=== PATIENT | male | born 1965 | race Caucasian/White ===

== ENCOUNTER 2017-06-10 12:45 | Emergency (ER) | payer BC, OTHER ==
[~2017-06-10] VITALS: Ht 180.3 cm; Wt 74.8 kg
[2017-06-10 13:01] VITALS: BP 146/100
== END 2017-06-10 20:15 | disposition left against medical advice (07) ==
LOC: ER 12:45
DX: M79.672 Pain in left foot (principal); M79.671 Pain in right foot; Z53.21 Procedure and treatment not carried out due to patient leaving prior to being seen by health care provider

== ENCOUNTER 2017-09-09 11:31 | Inpatient (IN) | payer BC ==
[~2017-09-09] VITALS: Ht 180.3 cm; Wt 72.6 kg
[~2017-09-09 11:31] MED LIST: AMLO5TAB2 PO; ASPI81CH43 GT; ATOR10TA52 PO; CLOP75TA28 PO; CYCL1TAB18 PO; DULO60CA PO; FEXO-42 PO; INSLANTI SC; LEVO100T8 PO; LISI10TA6 PO; LUBI24CA6 PO; OXYC325T14 PO
[2017-09-09 12:57] LABS: Hemoglobin 10.4 g/dL (13.5-17.5); White Blood Cell 12.9 10^3/uL (4.4-10.8)
[2017-09-09 12:58] LABS: Basophils # (auto) 0.1 uL; Basophils % (auto) 1.1 % (0.0-2.0); Eosinophils # (auto) 0.1 uL; Eosinophils % (auto) 0.9 % (0.0-7.0); Hematocrit 32.5 % (41.0-53.0); Lymphocytes # (auto) 1.2 uL; Lymphocytes % (auto) 9.7 % (10.0-50.0); Mean Corpuscular Hemoglobin 27.7 pg (28.0-32.0); Mean Corpuscular Hgb Conc. 32.1 g/dL (32.0-36.0); Mean Corpuscular Volume 86.4 fL (80.0-100.0); Monocytes % (auto) 8.1 % (0.0-12.0); Neutrophils # (auto) 10.3 uL; Neutrophils % (auto) 80.2 % (37.0-80.0); Nucleated Red Blood Cells % 0.1 %; Platelet Count (auto) 620 10^3/uL (140-450); Red Blood Cells 3.76 10^6/uL (4.5-5.90); Red Cell Distribution Width 16.8 % (11.8-14.3)
[2017-09-09 13:10] LABS: INR 0.95 (0.9-1.15); Partial Thromboplastin Time 31.9 sec (22.64-33.71); Prothrombin Time 10.3 sec (9.37-12.3)
[2017-09-09 13:19] LABS: Alanine Aminotransferase 41 U/L (16-61); Albumin 2.6 g/dL (3.4-5.0); Alkaline Phosphatase 86 U/L (45-117); Anion Gap 6 (5-15); Aspartate Aminotransferase 27 U/L (15-37); BUN/Creatinine Ratio 13.7; Bilirubin, Total 0.5 mg/dL (0.2-1.0); Blood Urea Nitrogen 19 mg/dL (7-18); Calcium 8.5 mg/dL (8.5-10.1); Carbon Dioxide 28 mmol/L (21-32); Chloride 102 mmol/L (98-107); GFR African American 69 mL/min; GFR Non-African American 57 mL/min; Glucose 179 mg/dL (74-106); Magnesium 2.2 mg/dL (1.6-2.6); Potassium 4.4 mmol/L (3.5-5.1); Sodium 136 mmol/L (136-145)
[2017-09-09] MEDS ORDERED: ONDANSETRON HCL 4 MG/2 ML VIAL IV ONE (14:30)
[2017-09-09] MEDS ORDERED: MORPHINE SULFATE 8mg/ml INJ SDV IV ONE (14:30)
[2017-09-09] MEDS ORDERED: DEXTROSE (50%) 50ML SYRG IV PRN (15:45)
[2017-09-09] MEDS ORDERED: MORPHINE SULFATE 8mg/ml INJ SDV IV PRN (15:45)
[2017-09-09] MEDS ORDERED: ACETAMINOPHEN 500 MG TAB PO PRN (15:45)
[2017-09-09] MEDS ORDERED: TEMAZEPAM 15 MG CAP PO PRN (15:45)
[2017-09-09] MEDS ORDERED: NITROGLYCERIN 0.4 MG SL TAB SL PRN (15:45)
[2017-09-09] MEDS ORDERED: LORazepam 0.5 MG TAB PO PRN (15:45)
[2017-09-09] MEDS: ACCU-CHEK COMFORT CURVE STRIP VI SCH ×2 (16:32→21:24)
[2017-09-09] MEDS: InsuLIN REG 1unit/0.01ml Soln (100units/ml) SC SCH ×2 (16:37→21:50)
[2017-09-09] MEDS: SODIUM CHLORIDE 0.9% 1,000 ML IV SCH (16:37)
[2017-09-09 17:00] VITALS: BP 149/85
[2017-09-09] MEDS: MORPHINE SULFATE 8mg/ml INJ SDV IV PRN ×2 (18:48→22:45)
[2017-09-09] MEDS: PROMETHAZINE HCL 25 MG/ML 1ML IV PRN ×2 (18:49→22:45)
[2017-09-09 20:00] VITALS: BP 151/72
[2017-09-09] MEDS: CLINDAMYCIN 600MG IV 50 ML IV SCH (21:21)
[2017-09-09] MEDS: ATORVASTATIN 20 MG TAB PO SCH (21:21)
[2017-09-09 22:34] VITALS: BP 157/72
[2017-09-10] MEDS: SODIUM CHLORIDE 0.9% 1,000 ML IV SCH ×3 (01:41→21:15)
[2017-09-10] MEDS: MORPHINE SULFATE 8mg/ml INJ SDV IV PRN ×5 (03:43→21:16)
[2017-09-10] MEDS: PROMETHAZINE HCL 25 MG/ML 1ML IV PRN ×5 (03:44→21:16)
[2017-09-10] MEDS: CLINDAMYCIN 600MG IV 50 ML IV SCH ×3 (05:15→21:15)
[2017-09-10] MEDS: cloNIDine HCL 0.1 MG TAB PO PRN ×2 (05:16→17:37)
[2017-09-10] MEDS: OXYCODONE W/ ACETAMINOPHEN 5/325MG TABLET PO PRN ×2 (05:21→12:21)
[2017-09-10 05:39] VITALS: BP 165/77
[2017-09-10] MEDS: LEVOTHYROXINE SODIUM 100 MCG TAB PO SCH (06:26)
[2017-09-10] MEDS: InsuLIN REG 1unit/0.01ml Soln (100units/ml) SC SCH ×4 (06:27→22:00)
[2017-09-10] MEDS: ACCU-CHEK COMFORT CURVE STRIP VI SCH ×4 (06:27→21:16)
[2017-09-10 06:36] LABS: Basophils # (auto) 0.1 uL; Eosinophils # (auto) 0.3 uL; Eosinophils % (auto) 3.1 % (0.0-7.0); Hemoglobin 10.2 g/dL (13.5-17.5); Monocytes # (auto) 0.9 uL; Neutrophils % (auto) 70.9 % (37.0-80.0)
[2017-09-10 06:37] LABS: Hematocrit 30.8 % (41.0-53.0); Lymphocytes # (auto) 1.8 uL; Lymphocytes % (auto) 16.6 % (10.0-50.0); Mean Corpuscular Hemoglobin 28.4 pg (28.0-32.0); Mean Corpuscular Hgb Conc. 33.2 g/dL (32.0-36.0); Mean Corpuscular Volume 85.7 fL (80.0-100.0); Monocytes % (auto) 8.4 % (0.0-12.0); Neutrophils # (auto) 7.5 uL; Platelet Count (auto) 600 10^3/uL (140-450); Red Blood Cells 3.59 10^6/uL (4.5-5.90); Red Cell Distribution Width 16.7 % (11.8-14.3); White Blood Cell 10.6 10^3/uL (4.4-10.8)
[2017-09-10 06:52] LABS: Albumin 2.4 g/dL (3.4-5.0); BUN/Creatinine Ratio 15.2; Bilirubin, Total 0.5 mg/dL (0.2-1.0); Calcium 8.8 mg/dL (8.5-10.1); Potassium 4.5 mmol/L (3.5-5.1); Total Protein 6.5 g/dL (6.4-8.2)
[2017-09-10] MEDS: cefTRIAXone 1GM/10ml IVPUSH 10 ML IV SCH (08:48)
[2017-09-10 09:00] VITALS: BP 159/72
[2017-09-10] MEDS ORDERED: LISINOPRIL 10 MG TAB PO SCH (10:00)
[2017-09-10] MEDS: PANTOPRAZOLE 40 MG TAB PO SCH (10:06)
[2017-09-10] MEDS: FEXOFENADINE HCL 60 MG TAB PO SCH (10:06)
[2017-09-10] MEDS: HCTZ 25 MG TAB PO SCH (10:07)
[2017-09-10] MEDS: LISINOPRIL 20 MG TAB PO SCH (10:07)
[2017-09-10] MEDS: ASPirin 81 mg TAB PO SCH (10:08)
[2017-09-10] MEDS: amLODIPine BESYLATE 5 MG TAB PO SCH (10:08)
[2017-09-10] MEDS: CLOPIDOGREL BISULFATE 75 MG TAB PO SCH (10:08)
[2017-09-10] MEDS: DULoxetine HCL 30 MG CAP PO SCH (10:09)
[2017-09-10] MEDS: ENOXAPARIN SOD 40 MG/0.4 ML SYRINGE SC SCH (10:09)
[2017-09-10] MEDS: INSULIN LANTUS (GLARGINE) 1 /0.01ml (100units/ml) SC SCH (10:14)
[2017-09-10 13:00] VITALS: BP 160/83
[2017-09-10] MEDS: CYCLOBENZAPRINE HCL 10 MG TAB PO PRN (16:08)
[2017-09-10 17:54] VITALS: BP_SYST 83
[2017-09-10] MEDS: Boost Glucose Control 8 Ounces PO SCH (18:05)
[2017-09-10 20:00] VITALS: BP 143/67
[2017-09-10 20:14] LABS: Urine Bacteria NONE SEEN /hpf (None Seen); Urine Blood 1+ /uL (Negative); Urine Specific Gravity 1.008 (1.001-1.035); Urine WBC 1 /hpf (0 - 3)
[2017-09-10] MEDS: ATORVASTATIN 20 MG TAB PO SCH (21:16)
[2017-09-10] MEDS: ASCORBIC ACID 500 MG TAB PO SCH (21:16)
[2017-09-10 22:00] VITALS: BP 143/67
[2017-09-11] MEDS: OXYCODONE W/ ACETAMINOPHEN 5/325MG TABLET PO PRN ×2 (01:03→14:04)
[2017-09-11] MEDS: MORPHINE SULFATE 8mg/ml INJ SDV IV PRN ×5 (02:06→19:59)
[2017-09-11] MEDS: PROMETHAZINE HCL 25 MG/ML 1ML IV PRN ×2 (02:06→06:03)
[2017-09-11] MEDS: CYCLOBENZAPRINE HCL 10 MG TAB PO PRN (04:39)
[2017-09-11] MEDS: CLINDAMYCIN 600MG IV 50 ML IV SCH ×3 (05:53→22:04)
[2017-09-11 06:00] VITALS: BP 113/76
[2017-09-11] MEDS: LEVOTHYROXINE SODIUM 100 MCG TAB PO SCH (06:02)
[2017-09-11] MEDS: InsuLIN REG 1unit/0.01ml Soln (100units/ml) SC SCH ×4 (06:03→22:12)
[2017-09-11] MEDS: ACCU-CHEK COMFORT CURVE STRIP VI SCH ×4 (06:03→22:07)
[2017-09-11] MEDS: SODIUM CHLORIDE 0.9% 1,000 ML IV SCH ×2 (07:41→17:41)
[2017-09-11 08:00] VITALS: BP 135/83
[2017-09-11] MEDS: Boost Glucose Control 8 Ounces PO SCH ×2 (08:00→18:02)
[2017-09-11 09:00] VITALS: BP 135/83
[2017-09-11] MEDS: ASCORBIC ACID 500 MG TAB PO SCH ×2 (09:49→22:04)
[2017-09-11] MEDS: cefTRIAXone 1GM/10ml IVPUSH 10 ML IV SCH (09:49)
[2017-09-11] MEDS: ENOXAPARIN SOD 40 MG/0.4 ML SYRINGE SC SCH (09:49)
[2017-09-11] MEDS: amLODIPine BESYLATE 5 MG TAB PO SCH (09:50)
[2017-09-11] MEDS: LISINOPRIL 20 MG TAB PO SCH (09:50)
[2017-09-11] MEDS: PANTOPRAZOLE 40 MG TAB PO SCH (09:50)
[2017-09-11] MEDS: MULTIPLE VITAMIN TAB PO SCH (09:51)
[2017-09-11] MEDS: CLOPIDOGREL BISULFATE 75 MG TAB PO SCH (09:51)
[2017-09-11] MEDS: FEXOFENADINE HCL 60 MG TAB PO SCH (09:51)
[2017-09-11] MEDS: HCTZ 25 MG TAB PO SCH (09:52)
[2017-09-11] MEDS: DULoxetine HCL 30 MG CAP PO SCH (09:54)
[2017-09-11] MEDS: ASPirin 81 mg TAB PO SCH (09:54)
[2017-09-11] MEDS: INSULIN LANTUS (GLARGINE) 1 /0.01ml (100units/ml) SC SCH (09:54)
[2017-09-11 13:09] VITALS: BP 154/78
[2017-09-11 17:00] VITALS: BP 144/59
[2017-09-11] MEDS: LACTULOSE 20Gm/30ML SOLN PO PRN (19:59)
[2017-09-11 22:00] VITALS: BP 150/75
[2017-09-11] MEDS: ATORVASTATIN 20 MG TAB PO SCH (22:04)
[2017-09-12] VITALS (7 sets, daily range): BP systolic 125–159; BP diastolic 61–83
[2017-09-12] MEDS: SODIUM CHLORIDE 0.9% 1,000 ML IV SCH ×2 (00:11→13:41)
[2017-09-12] MEDS: MORPHINE SULFATE 8mg/ml INJ SDV IV PRN ×6 (00:11→21:28)
[2017-09-12] MEDS: CLINDAMYCIN 600MG IV 50 ML IV SCH ×3 (06:15→21:16)
[2017-09-12] MEDS: InsuLIN REG 1unit/0.01ml Soln (100units/ml) SC SCH ×4 (06:15→21:21)
[2017-09-12] MEDS: LEVOTHYROXINE SODIUM 100 MCG TAB PO SCH (06:15)
[2017-09-12] MEDS: ACCU-CHEK COMFORT CURVE STRIP VI SCH ×4 (06:15→21:21)
[2017-09-12] MEDS: Boost Glucose Control 8 Ounces PO SCH ×2 (08:00→18:00)
[2017-09-12] MEDS: ENOXAPARIN SOD 40 MG/0.4 ML SYRINGE SC SCH (08:51)
[2017-09-12] MEDS: cefTRIAXone 1GM/10ml IVPUSH 10 ML IV SCH (08:51)
[2017-09-12] MEDS: MULTIPLE VITAMIN TAB PO SCH (08:54)
[2017-09-12] MEDS: DULoxetine HCL 30 MG CAP PO SCH (08:54)
[2017-09-12] MEDS: ASCORBIC ACID 500 MG TAB PO SCH ×2 (08:54→21:16)
[2017-09-12] MEDS: CLOPIDOGREL BISULFATE 75 MG TAB PO SCH (08:54)
[2017-09-12] MEDS: PANTOPRAZOLE 40 MG TAB PO SCH (08:54)
[2017-09-12] MEDS: LISINOPRIL 20 MG TAB PO SCH (08:55)
[2017-09-12] MEDS: ASPirin 81 mg TAB PO SCH (08:55)
[2017-09-12] MEDS: amLODIPine BESYLATE 5 MG TAB PO SCH (08:55)
[2017-09-12] MEDS: HCTZ 25 MG TAB PO SCH (08:56)
[2017-09-12] MEDS: FEXOFENADINE HCL 60 MG TAB PO SCH (10:00)
[2017-09-12] MEDS: INSULIN LANTUS (GLARGINE) 1 /0.01ml (100units/ml) SC SCH (10:00)
[2017-09-12] MEDS: ATORVASTATIN 20 MG TAB PO SCH (21:16)
[2017-09-13] MEDS: MORPHINE SULFATE 8mg/ml INJ SDV IV PRN ×6 (01:18→22:24)
[2017-09-13 04:55] VITALS: BP 166/78
[2017-09-13] MEDS: CLINDAMYCIN 600MG IV 50 ML IV SCH ×3 (05:27→22:23)
[2017-09-13] MEDS: LEVOTHYROXINE SODIUM 100 MCG TAB PO SCH (06:11)
[2017-09-13] MEDS: ACCU-CHEK COMFORT CURVE STRIP VI SCH ×4 (06:11→22:23)
[2017-09-13] MEDS: InsuLIN REG 1unit/0.01ml Soln (100units/ml) SC SCH ×4 (06:12→22:00)
[2017-09-13 06:17] LABS: Basophils # (auto) 0.1 uL; Eosinophils # (auto) 0.2 uL; Hematocrit 31.2 % (41.0-53.0); Monocytes # (auto) 0.9 uL; Nucleated Red Blood Cells % 0.1 %; Red Cell Distribution Width 16.2 % (11.8-14.3); White Blood Cell 11.2 10^3/uL (4.4-10.8)
[2017-09-13 06:20] LABS: Basophils % (auto) 0.6 % (0.0-2.0); Hemoglobin 10.2 g/dL (13.5-17.5); Lymphocytes # (auto) 1.3 uL; Lymphocytes % (auto) 11.3 % (10.0-50.0); Mean Corpuscular Hgb Conc. 32.8 g/dL (32.0-36.0); Mean Corpuscular Volume 85.3 fL (80.0-100.0); Neutrophils # (auto) 8.8 uL; Neutrophils % (auto) 78.1 % (37.0-80.0); Platelet Count (auto) 606 10^3/uL (140-450); Red Blood Cells 3.66 10^6/uL (4.5-5.90)
[2017-09-13 06:41] LABS: Albumin 2.6 g/dL (3.4-5.0); Bilirubin, Total 0.7 mg/dL (0.2-1.0); Calcium 8.6 mg/dL (8.5-10.1); Potassium 4.3 mmol/L (3.5-5.1); Total Protein 6.9 g/dL (6.4-8.2)
[2017-09-13 08:00] VITALS: BP 159/83
[2017-09-13] MEDS: Boost Glucose Control 8 Ounces PO SCH ×2 (08:00→19:00)
[2017-09-13] MEDS: cefTRIAXone 1GM/10ml IVPUSH 10 ML IV SCH (08:52)
[2017-09-13] MEDS: INSULIN LANTUS (GLARGINE) 1 /0.01ml (100units/ml) SC SCH (08:54)
[2017-09-13] MEDS: ENOXAPARIN SOD 40 MG/0.4 ML SYRINGE SC SCH (08:54)
[2017-09-13] MEDS: FEXOFENADINE HCL 60 MG TAB PO SCH (08:54)
[2017-09-13] MEDS: DULoxetine HCL 30 MG CAP PO SCH (08:55)
[2017-09-13] MEDS: CLOPIDOGREL BISULFATE 75 MG TAB PO SCH (08:55)
[2017-09-13] MEDS: OXYCODONE W/ ACETAMINOPHEN 5/325MG TABLET PO PRN (08:56)
[2017-09-13] MEDS: PANTOPRAZOLE 40 MG TAB PO SCH (08:56)
[2017-09-13] MEDS: ASCORBIC ACID 500 MG TAB PO SCH ×2 (08:56→22:23)
[2017-09-13] MEDS: amLODIPine BESYLATE 5 MG TAB PO SCH (08:56)
[2017-09-13] MEDS: ASPirin 81 mg TAB PO SCH (08:57)
[2017-09-13] MEDS: HCTZ 25 MG TAB PO SCH (08:57)
[2017-09-13] MEDS: LISINOPRIL 20 MG TAB PO SCH (08:58)
[2017-09-13] MEDS: MULTIPLE VITAMIN TAB PO SCH (08:58)
[2017-09-13 09:00] VITALS: BP 151/80
[2017-09-13 13:00] VITALS: BP 142/86
[2017-09-13 17:00] VITALS: BP 164/74
[2017-09-13 22:00] VITALS: BP 154/70
[2017-09-13] MEDS: ATORVASTATIN 20 MG TAB PO SCH (22:23)
[2017-09-14] MEDS: MORPHINE SULFATE 8mg/ml INJ SDV IV PRN ×5 (02:42→21:01)
[2017-09-14 04:43] VITALS: BP 141/73
[2017-09-14] MEDS: LEVOTHYROXINE SODIUM 100 MCG TAB PO SCH (06:10)
[2017-09-14] MEDS: ACCU-CHEK COMFORT CURVE STRIP VI SCH ×4 (06:13→22:20)
[2017-09-14] MEDS: CLINDAMYCIN 600MG IV 50 ML IV SCH ×3 (06:13→21:01)
[2017-09-14] MEDS: InsuLIN REG 1unit/0.01ml Soln (100units/ml) SC SCH ×4 (06:14→22:20)
[2017-09-14 08:00] VITALS: BP 156/76
[2017-09-14] MEDS: Boost Glucose Control 8 Ounces PO SCH ×2 (08:00→18:00)
[2017-09-14 08:07] VITALS: BP 156/76
[2017-09-14] MEDS: cefTRIAXone 1GM/10ml IVPUSH 10 ML IV SCH (09:20)
[2017-09-14] MEDS: ENOXAPARIN SOD 40 MG/0.4 ML SYRINGE SC SCH (09:21)
[2017-09-14] MEDS: MULTIPLE VITAMIN TAB PO SCH (09:22)
[2017-09-14] MEDS: LACTULOSE 20Gm/30ML SOLN PO PRN (09:22)
[2017-09-14] MEDS: ASPirin 81 mg TAB PO SCH (09:23)
[2017-09-14] MEDS: DULoxetine HCL 30 MG CAP PO SCH (09:23)
[2017-09-14] MEDS: ASCORBIC ACID 500 MG TAB PO SCH ×2 (09:23→21:01)
[2017-09-14] MEDS: LISINOPRIL 20 MG TAB PO SCH (09:24)
[2017-09-14] MEDS: amLODIPine BESYLATE 5 MG TAB PO SCH (09:25)
[2017-09-14] MEDS: CLOPIDOGREL BISULFATE 75 MG TAB PO SCH (09:25)
[2017-09-14] MEDS: PANTOPRAZOLE 40 MG TAB PO SCH (09:25)
[2017-09-14] MEDS: HCTZ 25 MG TAB PO SCH (09:26)
[2017-09-14] MEDS: FEXOFENADINE HCL 60 MG TAB PO SCH (09:27)
[2017-09-14] MEDS: INSULIN LANTUS (GLARGINE) 1 /0.01ml (100units/ml) SC SCH (09:27)
[2017-09-14 12:39] VITALS: BP 152/71
[2017-09-14] MEDS ORDERED: METOPROLOL TARTRATE 25 MG TAB PO ONE (14:45)
[2017-09-14] MEDS: OXYCODONE W/ ACETAMINOPHEN 5/325MG TABLET PO PRN (14:59)
[2017-09-14 16:46] VITALS: BP 139/67
[2017-09-14] MEDS: ATORVASTATIN 20 MG TAB PO SCH (21:01)
[2017-09-14 21:54] VITALS: BP 140/84
[2017-09-15] MEDS: MORPHINE SULFATE 8mg/ml INJ SDV IV PRN ×2 (01:08→05:20)
[2017-09-15] MEDS: CLINDAMYCIN 600MG IV 50 ML IV SCH ×3 (05:20→21:09)
[2017-09-15 05:36] VITALS: BP 155/71
[2017-09-15] MEDS: ACCU-CHEK COMFORT CURVE STRIP VI SCH ×4 (06:49→21:16)
[2017-09-15] MEDS: InsuLIN REG 1unit/0.01ml Soln (100units/ml) SC SCH ×4 (06:50→21:21)
[2017-09-15] MEDS: LEVOTHYROXINE SODIUM 100 MCG TAB PO SCH (06:56)
[2017-09-15] MEDS: Boost Glucose Control 8 Ounces PO SCH ×2 (08:00→18:00)
[2017-09-15 09:23] VITALS: BP 144/79
[2017-09-15] MEDS: LACTULOSE 20Gm/30ML SOLN PO PRN (09:41)
[2017-09-15] MEDS: ENOXAPARIN SOD 40 MG/0.4 ML SYRINGE SC SCH (09:41)
[2017-09-15] MEDS: PANTOPRAZOLE 40 MG TAB PO SCH (09:42)
[2017-09-15] MEDS: amLODIPine BESYLATE 5 MG TAB PO SCH (09:43)
[2017-09-15] MEDS: ASCORBIC ACID 500 MG TAB PO SCH ×2 (09:43→21:08)
[2017-09-15] MEDS: LISINOPRIL 20 MG TAB PO SCH (09:44)
[2017-09-15] MEDS: MULTIPLE VITAMIN TAB PO SCH (09:44)
[2017-09-15] MEDS: CLOPIDOGREL BISULFATE 75 MG TAB PO SCH (09:44)
[2017-09-15] MEDS ORDERED: MORPHINE SULFATE 4 MG/ML SYR/VIAL IV PRN (09:45)
[2017-09-15] MEDS: DULoxetine HCL 30 MG CAP PO SCH (09:45)
[2017-09-15] MEDS: HCTZ 25 MG TAB PO SCH (09:46)
[2017-09-15] MEDS: ASPirin 81 mg TAB PO SCH (09:46)
[2017-09-15] MEDS: cefTRIAXone 1GM/10ml IVPUSH 10 ML IV SCH (09:46)
[2017-09-15] MEDS: INSULIN LANTUS (GLARGINE) 1 /0.01ml (100units/ml) SC SCH (09:47)
[2017-09-15] MEDS: MORPHINE SULFATE 4 MG/ML SYR/VIAL IV PRN ×4 (09:54→22:28)
[2017-09-15] MEDS: FEXOFENADINE HCL 60 MG TAB PO SCH (09:57)
[2017-09-15 13:00] VITALS: BP 150/65
[2017-09-15 16:52] VITALS: BP 150/71
[2017-09-15] MEDS: ATORVASTATIN 20 MG TAB PO SCH (21:05)
[2017-09-15] MEDS: CYCLOBENZAPRINE HCL 10 MG TAB PO PRN (21:07)
[2017-09-15 21:40] VITALS: BP 154/69
[2017-09-16] MEDS: OXYCODONE W/ ACETAMINOPHEN 5/325MG TABLET PO PRN ×3 (00:57→22:10)
[2017-09-16] MEDS: MORPHINE SULFATE 4 MG/ML SYR/VIAL IV PRN ×6 (02:18→23:20)
[2017-09-16] MEDS: cloNIDine HCL 0.1 MG TAB PO PRN (05:11)
[2017-09-16] MEDS: CYCLOBENZAPRINE HCL 10 MG TAB PO PRN (05:14)
[2017-09-16 05:37] VITALS: BP 179/104
[2017-09-16] MEDS: CLINDAMYCIN 600MG IV 50 ML IV SCH ×3 (05:47→22:11)
[2017-09-16] MEDS: LEVOTHYROXINE SODIUM 100 MCG TAB PO SCH (06:16)
[2017-09-16] MEDS: ACCU-CHEK COMFORT CURVE STRIP VI SCH ×4 (06:26→22:15)
[2017-09-16] MEDS: InsuLIN REG 1unit/0.01ml Soln (100units/ml) SC SCH ×4 (06:27→22:00)
[2017-09-16] MEDS: Boost Glucose Control 8 Ounces PO SCH ×2 (08:00→18:00)
[2017-09-16 09:00] VITALS: BP 140/67
[2017-09-16] MEDS: FEXOFENADINE HCL 60 MG TAB PO SCH (10:00)
[2017-09-16] MEDS: INSULIN LANTUS (GLARGINE) 1 /0.01ml (100units/ml) SC SCH (10:21)
[2017-09-16] MEDS: ENOXAPARIN SOD 40 MG/0.4 ML SYRINGE SC SCH (10:22)
[2017-09-16] MEDS: cefTRIAXone 1GM/10ml IVPUSH 10 ML IV SCH (10:22)
[2017-09-16] MEDS: DULoxetine HCL 30 MG CAP PO SCH (10:22)
[2017-09-16] MEDS: amLODIPine BESYLATE 5 MG TAB PO SCH (10:23)
[2017-09-16] MEDS: MULTIPLE VITAMIN TAB PO SCH (10:23)
[2017-09-16] MEDS: PANTOPRAZOLE 40 MG TAB PO SCH (10:24)
[2017-09-16] MEDS: ASPirin 81 mg TAB PO SCH (10:24)
[2017-09-16] MEDS: HCTZ 25 MG TAB PO SCH (10:24)
[2017-09-16] MEDS: LISINOPRIL 20 MG TAB PO SCH (10:25)
[2017-09-16] MEDS: ASCORBIC ACID 500 MG TAB PO SCH ×2 (10:25→22:09)
[2017-09-16] MEDS: CLOPIDOGREL BISULFATE 75 MG TAB PO SCH (10:25)
[2017-09-16 13:00] VITALS: BP 142/70
[2017-09-16 17:00] VITALS: BP 145/72
[2017-09-16 22:00] VITALS: BP 141/79
[2017-09-16] MEDS: ATORVASTATIN 20 MG TAB PO SCH (22:09)
[2017-09-17] VITALS (7 sets, daily range): BP systolic 125–165; BP diastolic 65–74
[2017-09-17] MEDS: MORPHINE SULFATE 4 MG/ML SYR/VIAL IV PRN ×5 (03:13→21:02)
[2017-09-17] MEDS: CYCLOBENZAPRINE HCL 10 MG TAB PO PRN (04:27)
[2017-09-17] MEDS: CLINDAMYCIN 600MG IV 50 ML IV SCH ×3 (05:35→21:04)
[2017-09-17] MEDS: LACTULOSE 20Gm/30ML SOLN PO PRN (05:46)
[2017-09-17] MEDS: OXYCODONE W/ ACETAMINOPHEN 5/325MG TABLET PO PRN ×2 (05:47→19:46)
[2017-09-17] MEDS: LEVOTHYROXINE SODIUM 100 MCG TAB PO SCH (06:20)
[2017-09-17] MEDS: InsuLIN REG 1unit/0.01ml Soln (100units/ml) SC SCH ×4 (06:25→21:19)
[2017-09-17] MEDS: ACCU-CHEK COMFORT CURVE STRIP VI SCH ×4 (06:25→21:19)
[2017-09-17] MEDS: cefTRIAXone 1GM/10ml IVPUSH 10 ML IV SCH (09:54)
[2017-09-17] MEDS: FEXOFENADINE HCL 60 MG TAB PO SCH (09:55)
[2017-09-17] MEDS: CLOPIDOGREL BISULFATE 75 MG TAB PO SCH (09:55)
[2017-09-17] MEDS: ASPirin 81 mg TAB PO SCH (09:55)
[2017-09-17] MEDS: PANTOPRAZOLE 40 MG TAB PO SCH (09:55)
[2017-09-17] MEDS: ASCORBIC ACID 500 MG TAB PO SCH ×2 (09:55→21:05)
[2017-09-17] MEDS: MULTIPLE VITAMIN TAB PO SCH (09:55)
[2017-09-17] MEDS: LISINOPRIL 20 MG TAB PO SCH (09:56)
[2017-09-17] MEDS: DULoxetine HCL 30 MG CAP PO SCH (09:56)
[2017-09-17] MEDS: amLODIPine BESYLATE 5 MG TAB PO SCH (09:57)
[2017-09-17] MEDS: HCTZ 25 MG TAB PO SCH (09:58)
[2017-09-17] MEDS: ENOXAPARIN SOD 40 MG/0.4 ML SYRINGE SC SCH (09:58)
[2017-09-17] MEDS: Boost Glucose Control 8 Ounces PO SCH ×2 (09:58→18:00)
[2017-09-17] MEDS: INSULIN LANTUS (GLARGINE) 1 /0.01ml (100units/ml) SC SCH (10:16)
[2017-09-17] MEDS ORDERED: InsuLIN REG 1unit/0.01ml Soln (100units/ml) IV ONE (12:00)
[2017-09-17] MEDS: ATORVASTATIN 20 MG TAB PO SCH (21:04)
[2017-09-18] MEDS: MORPHINE SULFATE 4 MG/ML SYR/VIAL IV PRN ×5 (01:58→17:50)
[2017-09-18] MEDS: OXYCODONE W/ ACETAMINOPHEN 5/325MG TABLET PO PRN ×2 (04:20→11:53)
[2017-09-18 05:33] VITALS: BP 153/76
[2017-09-18] MEDS: CLINDAMYCIN 600MG IV 50 ML IV SCH (06:15)
[2017-09-18] MEDS: InsuLIN REG 1unit/0.01ml Soln (100units/ml) SC SCH ×3 (06:24→18:13)
[2017-09-18] MEDS: LEVOTHYROXINE SODIUM 100 MCG TAB PO SCH (06:24)
[2017-09-18] MEDS: ACCU-CHEK COMFORT CURVE STRIP VI SCH ×3 (06:24→18:13)
[2017-09-18 08:00] VITALS: BP 126/85
[2017-09-18] MEDS: ENOXAPARIN SOD 40 MG/0.4 ML SYRINGE SC SCH (09:53)
[2017-09-18] MEDS: DULoxetine HCL 30 MG CAP PO SCH (09:54)
[2017-09-18] MEDS: ASPirin 81 mg TAB PO SCH (09:54)
[2017-09-18] MEDS: FEXOFENADINE HCL 60 MG TAB PO SCH (09:54)
[2017-09-18] MEDS: CLOPIDOGREL BISULFATE 75 MG TAB PO SCH (09:54)
[2017-09-18] MEDS: ASCORBIC ACID 500 MG TAB PO SCH (09:54)
[2017-09-18] MEDS: MULTIPLE VITAMIN TAB PO SCH (09:54)
[2017-09-18] MEDS: HCTZ 25 MG TAB PO SCH (09:55)
[2017-09-18] MEDS: PANTOPRAZOLE 40 MG TAB PO SCH (09:55)
[2017-09-18] MEDS: amLODIPine BESYLATE 5 MG TAB PO SCH (09:55)
[2017-09-18] MEDS: LISINOPRIL 20 MG TAB PO SCH (09:56)
[2017-09-18] MEDS: cefTRIAXone 1GM/10ml IVPUSH 10 ML IV SCH (09:57)
[2017-09-18] MEDS: Boost Glucose Control 8 Ounces PO SCH (09:57)
[2017-09-18] MEDS: INSULIN LANTUS (GLARGINE) 1 /0.01ml (100units/ml) SC SCH (09:58)
[2017-09-18 13:00] VITALS: BP 116/67
[2017-09-18 17:36] VITALS: BP 146/72
[2017-09-18] MEDS ORDERED: CLINDAMYCIN 600MG IV 50 ML IV SCH (22:00)
== END 2017-09-18 18:00 | DRG 603 ==
LOC: ER 11:31 → TELE 11:32 → TELE-EAST 17:23
PROVIDERS: ADMIT Internal Medicine; ATTEND Family Medicine
DX: L03.116 Cellulitis of left lower limb (principal); E11.621 Type 2 diabetes mellitus with foot ulcer; E11.65 Type 2 diabetes mellitus with hyperglycemia; L97.419 Non-pressure chronic ulcer of right heel and midfoot with unspecified severity; D64.9 Anemia, unspecified; S60.429A Blister (nonthermal) of unspecified finger, initial encounter; E03.9 Hypothyroidism, unspecified; E78.00 Pure hypercholesterolemia, unspecified; E78.5 Hyperlipidemia, unspecified; S90.922A Unspecified superficial injury of left foot, initial encounter; X58.XXXA Exposure to other specified factors, initial encounter; G89.29 Other chronic pain; R79.89 Other specified abnormal findings of blood chemistry; I10 Essential (primary) hypertension; L03.115 Cellulitis of right lower limb; M54.5 Low back pain; Z79.4 Long term (current) use of insulin; Z82.49 Family history of ischemic heart disease and other diseases of the circulatory system; Z83.3 Family history of diabetes mellitus; Z95.5 Presence of coronary angioplasty implant and graft; Z88.2 Allergy status to sulfonamides; Y93.89 Activity, other specified; Y92.89 Other specified places as the place of occurrence of the external cause; Y99.8 Other external cause status
CPT/HCPCS: 36415; 70450; 71045; 80053; 80061; 81001; 82962; 83036; 83735; 84484; 85025; 85610; 85652; 85730; 87040; 87081; 93005; 94761; 96374; 96375; 97110; 97116; 97530; J1815; J2270; J2405; J3490

== ENCOUNTER → 2017-12-10 | Outpatient (CLI) | payer BC ==
[~2017-12-10] MED LIST changes: +INSLISPI SC; +IOHEXOL 350 MG/ML 100ML IJ ONE; +SODIUM CHLORIDE 0.9% 250 ML IV SCH
[2017-12-10 09:00] VITALS: BP 115/58
[2017-12-10 09:55] VITALS: BP 120/55
== END | disposition home or self-care (01) ==
LOC: Rad HDHVI 08:50
PROVIDERS: ATTEND Internal Medicine Cardiovascular Disease
DX: R10.9 Unspecified abdominal pain (principal); I10 Essential (primary) hypertension; E03.9 Hypothyroidism, unspecified; E78.00 Pure hypercholesterolemia, unspecified
CPT/HCPCS: 74175; 82565; G0463; Q9967

== ENCOUNTER → 2017-12-11 | Outpatient (CLI) | payer BC ==
[~2017-12-11] MED LIST changes: +AMLO5TAB13 PO; -AMLO5TAB2 PO; -IOHEXOL 350 MG/ML 100ML IJ ONE; -SODIUM CHLORIDE 0.9% 250 ML IV SCH
== END | disposition home or self-care (01) ==
LOC: Rad HDHVI 08:32
PROVIDERS: ATTEND Internal Medicine Cardiovascular Disease
DX: I77.1 Stricture of artery (principal); I25.9 Chronic ischemic heart disease, unspecified; I73.9 Peripheral vascular disease, unspecified
CPT/HCPCS: 93926

== ENCOUNTER → 2017-12-20 | Outpatient (CLI) | payer BC ==
[~2017-12-20] VITALS: Ht 180.3 cm; Wt 72.6 kg
[~2017-12-20] MED LIST changes: +ADENOSINE 61 MG in GIVE UN-DILUTED 0 ML IV ONE; +ADENOSINE 90 MG/30 ML INJ IV ONE; -AMLO5TAB13 PO; +AMLO5TAB2 PO
== END | disposition home or self-care (01) ==
LOC: Rad HDHVI 08:37
PROVIDERS: ATTEND Internal Medicine Cardiovascular Disease
DX: I25.2 Old myocardial infarction (principal); R06.01 Orthopnea; E11.9 Type 2 diabetes mellitus without complications; I73.9 Peripheral vascular disease, unspecified; Z88.2 Allergy status to sulfonamides
CPT/HCPCS: 78452; 93005; 96374; 96375; A9500; J0153

== ENCOUNTER → 2018-01-04 | Outpatient (CLI) | payer BC ==
[~2018-01-04] MED LIST changes: -ADENOSINE 61 MG in GIVE UN-DILUTED 0 ML IV ONE; -ADENOSINE 90 MG/30 ML INJ IV ONE; +FUROSEMIDE 100 MG/10ML VIAL IV ONE; +FUROSEMIDE 40 MG/4 ML VIAL ONE; +POTASSIUM CHL 10 Meq TABLET PO ONE; +POTASSIUM CHL 20 Meq TABLET PO ONE
[2018-01-04 09:45] VITALS: BP 162/64
[2018-01-04 10:20] VITALS: BP 148/65
[2018-01-04 12:13] LABS: Basophils # (auto) 0.1 uL; Hemoglobin 8.7 g/dL (13.5-17.5); Monocytes # (auto) 0.6 uL; Neutrophils % (auto) 79.4 % (37.0-80.0)
[2018-01-04 12:15] LABS: Basophils % (auto) 0.5 % (0.0-2.0); Eosinophils # (auto) 0.4 uL; Eosinophils % (auto) 3.3 % (0.0-7.0); Hematocrit 26.4 % (41.0-53.0); Lymphocytes # (auto) 1.3 uL; Lymphocytes % (auto) 11.6 % (10.0-50.0); Mean Corpuscular Hemoglobin 25.3 pg (28.0-32.0); Mean Corpuscular Hgb Conc. 33.1 g/dL (32.0-36.0); Mean Corpuscular Volume 76.4 fL (80.0-100.0); Monocytes % (auto) 5.2 % (0.0-12.0); Neutrophils # (auto) 8.8 uL; Platelet Count (auto) 459 10^3/uL (140-450); Red Blood Cells 3.45 10^6/uL (4.5-5.90); Red Cell Distribution Width 16.9 % (11.8-14.3)
[2018-01-04 13:40] LABS: BUN/Creatinine Ratio 20.8; Calcium 8.4 mg/dL (8.5-10.1); Magnesium 2.4 mg/dL (1.6-2.6); Potassium 4.7 mmol/L (3.5-5.1)
== END | disposition home or self-care (01) ==
LOC: CHF HDHVI 09:30
PROVIDERS: ATTEND Internal Medicine Cardiovascular Disease
DX: R60.0 Localized edema (principal); E87.70 Fluid overload, unspecified; I87.2 Venous insufficiency (chronic) (peripheral); E83.40 Disorders of magnesium metabolism, unspecified; R89.9 Unspecified abnormal finding in specimens from other organs, systems and tissues; I10 Essential (primary) hypertension; D64.9 Anemia, unspecified; E11.10 Type 2 diabetes mellitus with ketoacidosis without coma; I25.2 Old myocardial infarction; E03.9 Hypothyroidism, unspecified; E78.00 Pure hypercholesterolemia, unspecified
CPT/HCPCS: 36415; 80048; 82306; 83735; 85025; 87077; 87186; 87205; 96374; G0463; J1940

== ENCOUNTER → 2018-01-11 | Outpatient (CLI) | payer BC ==
[~2018-01-11] MED LIST changes: -FUROSEMIDE 100 MG/10ML VIAL IV ONE; -FUROSEMIDE 40 MG/4 ML VIAL ONE; -POTASSIUM CHL 10 Meq TABLET PO ONE; -POTASSIUM CHL 20 Meq TABLET PO ONE; +VANCOMYCIN 1GM/250ML 250 ML IV ONE
[2018-01-11 10:15] VITALS: BP 123/64
[2018-01-11 11:50] VITALS: BP 126/75
== END | disposition home or self-care (01) ==
LOC: CHF HDHVI 10:15
PROVIDERS: ATTEND Internal Medicine Cardiovascular Disease
DX: B95.62 Methicillin resistant Staphylococcus aureus infection as the cause of diseases classified elsewhere (principal); I10 Essential (primary) hypertension; E11.69 Type 2 diabetes mellitus with other specified complication; E03.9 Hypothyroidism, unspecified; E78.00 Pure hypercholesterolemia, unspecified
CPT/HCPCS: 96365; G0463; J3370

== ENCOUNTER 2018-01-13 13:57 | Inpatient (IN) | payer BC ==
[~2018-01-13] VITALS: Ht 170.2 cm; Wt 83.0 kg
[~2018-01-13 13:57] MED LIST changes: +AMLO5TAB13 PO; -AMLO5TAB2 PO; -INSLISPI SC; -VANCOMYCIN 1GM/250ML 250 ML IV ONE
[2018-01-13] MEDS ORDERED: SODIUM CHLORIDE 0.9% 1,000 ML IV ONE (16:28)
[2018-01-13] MEDS ORDERED: MORPHINE SULFATE 4 MG/ML SYR/VIAL IV ONE ×2 (16:30→21:30)
[2018-01-13] MEDS ORDERED: PROMETHAZINE HCL 25 MG/ML 1ML IV ONE (16:30)
[2018-01-13] MEDS ORDERED: FUROSEMIDE 40 MG/4 ML VIAL IV ONE (16:30)
[2018-01-13] MEDS ORDERED: SPIRONOLACTONE 25 MG TAB PO ONE (16:30)
[2018-01-13] MEDS ORDERED: cefTRIAXone 1GM/10ml IVPUSH 10 ML IV ONE (16:30)
[2018-01-13] MEDS ORDERED: TETANUS-DIPTH-ACEL PERTUSSIS 0.5ML SYRG IM ONE (16:45)
[2018-01-13 16:47] LABS: Basophils # (auto) 0.1 uL; Lymphocytes # (auto) 1.6 uL; Mean Corpuscular Volume 77.1 fL (80.0-100.0)
[2018-01-13 16:48] LABS: Basophils % (auto) 0.6 % (0.0-2.0); Eosinophils # (auto) 1.1 uL; Eosinophils % (auto) 7.8 % (0.0-7.0); Hematocrit 27.5 % (41.0-53.0); Hemoglobin 8.6 g/dL (13.5-17.5); Lymphocytes % (auto) 11.7 % (10.0-50.0); Mean Corpuscular Hemoglobin 24.2 pg (28.0-32.0); Mean Corpuscular Hgb Conc. 31.4 g/dL (32.0-36.0); Monocytes # (auto) 0.7 uL; Monocytes % (auto) 5.3 % (0.0-12.0); Neutrophils # (auto) 10.3 uL; Neutrophils % (auto) 74.6 % (37.0-80.0); Platelet Count (auto) 532 10^3/uL (140-450); Red Blood Cells 3.56 10^6/uL (4.5-5.90); Red Cell Distribution Width 16.4 % (11.8-14.3); White Blood Cell 13.8 10^3/uL (4.4-10.8)
[2018-01-13 17:01] LABS: Partial Thromboplastin Time 31.8 sec (23.78-33.04); Prothrombin Time 10.7 sec (9.27-12.13)
[2018-01-13 17:48] LABS: Albumin 2.8 g/dL (3.4-5.0); BUN/Creatinine Ratio 18.3; Bilirubin, Total 0.2 mg/dL (0.2-1.0); Calcium 8.1 mg/dL (8.5-10.1); Magnesium 2.5 mg/dL (1.6-2.6); Potassium 5.4 mmol/L (3.5-5.1)
[2018-01-13] MEDS ORDERED: MORPHINE SULF INJ 2 MG/ML SYRINGE 1ML ONE (21:24)
[2018-01-13] MEDS ORDERED: ONDANSETRON HCL 4 MG/2 ML VIAL IV ONE (21:30)
[2018-01-13] MEDS ORDERED: ACETAMINOPHEN 500 MG TAB PO PRN (22:00)
[2018-01-13] MEDS ORDERED: ONDANSETRON HCL 4 MG/2 ML VIAL IV PRN (22:00)
[2018-01-13] MEDS ORDERED: INSULIN LANTUS (GLARGINE) 1 /0.01ml (100units/ml) SC SCH (22:00)
[2018-01-13 23:12] VITALS: BP 148/67
[2018-01-13] MEDS ORDERED: SODIUM CHLORIDE 0.9% 250 ML IV ONE (23:30)
[2018-01-14] MEDS ORDERED: DEXTROSE (50%) 50ML SYRG IV PRN (01:00)
[2018-01-14] MEDS: MORPHINE SULF INJ 2 MG/ML SYRINGE 1ML IV PRN ×6 (01:16→21:29)
[2018-01-14] MEDS: CLINDAMYCIN 600MG IV 50 ML IV SCH ×4 (01:18→21:38)
[2018-01-14] MEDS: INSULIN LANTUS (GLARGINE) 1 /0.01ml (100units/ml) SC SCH ×2 (01:18→21:42)
[2018-01-14 01:24] LABS: Urine WBC None Seen /hpf (0 - 3)
[2018-01-14 01:32] LABS: Urine Bacteria NONE SEEN /hpf (None Seen); Urine Blood Negative /uL (Negative); Urine Specific Gravity 1.006 (1.001-1.035)
[2018-01-14] MEDS ORDERED: INSLISPI SC (01:58)
[2018-01-14] MEDS: LEVOTHYROXINE SODIUM 100 MCG TAB PO SCH (06:15)
[2018-01-14] MEDS: ACCU-CHEK COMFORT CURVE STRIP VI SCH ×4 (06:15→21:41)
[2018-01-14] MEDS: InsuLIN REG 1unit/0.01ml Soln (100units/ml) SC SCH ×4 (06:16→21:42)
[2018-01-14 07:32] LABS: Hemoglobin 8.9 g/dL (13.5-17.5)
[2018-01-14 07:35] LABS: Basophils # (auto) 0 uL; Basophils % (auto) 0.3 % (0.0-2.0); Eosinophils # (auto) 1.2 uL; Eosinophils % (auto) 9.3 % (0.0-7.0); Lymphocytes # (auto) 1.4 uL; Mean Corpuscular Hemoglobin 24.4 pg (28.0-32.0); Mean Corpuscular Hgb Conc. 31.9 g/dL (32.0-36.0); Mean Corpuscular Volume 76.5 fL (80.0-100.0); Monocytes # (auto) 0.7 uL; Monocytes % (auto) 5.3 % (0.0-12.0); Neutrophils # (auto) 9.1 uL; Neutrophils % (auto) 74.1 % (37.0-80.0); Platelet Count (auto) 469 10^3/uL (140-450); Red Blood Cells 3.66 10^6/uL (4.5-5.90); Red Cell Distribution Width 16.3 % (11.8-14.3); White Blood Cell 12.4 10^3/uL (4.4-10.8)
[2018-01-14 07:36] LABS: BUN/Creatinine Ratio 17.9; Calcium 8.1 mg/dL (8.5-10.1)
[2018-01-14 08:33] VITALS: BP 133/65
[2018-01-14] MEDS: CLOPIDOGREL BISULFATE 75 MG TAB PO SCH (09:14)
[2018-01-14] MEDS: ASPirin-EC 81 mg tab PO SCH (09:14)
[2018-01-14] MEDS: LISINOPRIL 10 MG TAB PO SCH ×2 (09:14→21:36)
[2018-01-14 11:48] VITALS: BP 132/68
[2018-01-14 16:45] VITALS: BP 139/71
[2018-01-14] MEDS: cefTRIAXone 1GM/10ml IVPUSH 10 ML IV SCH (21:31)
[2018-01-14] MEDS: ATORVASTATIN 20 MG TAB PO SCH (21:36)
[2018-01-14 22:00] VITALS: BP 134/62
[2018-01-14] MEDS: HYDROcodone-ACET 5/325MG TAB PO PRN (23:24)
[2018-01-15] MEDS: MORPHINE SULF INJ 2 MG/ML SYRINGE 1ML IV PRN ×5 (01:20→21:40)
[2018-01-15] MEDS: HYDROcodone-ACET 5/325MG TAB PO PRN (04:30)
[2018-01-15 05:00] VITALS: BP 115/61
[2018-01-15] MEDS: CLINDAMYCIN 600MG IV 50 ML IV SCH ×3 (05:32→21:55)
[2018-01-15] MEDS: InsuLIN REG 1unit/0.01ml Soln (100units/ml) SC SCH ×4 (05:52→21:55)
[2018-01-15] MEDS: ACCU-CHEK COMFORT CURVE STRIP VI SCH ×4 (05:52→21:56)
[2018-01-15] MEDS: LEVOTHYROXINE SODIUM 100 MCG TAB PO SCH (06:18)
[2018-01-15 08:00] VITALS: BP 114/66
[2018-01-15] MEDS: ASPirin-EC 81 mg tab PO SCH (10:57)
[2018-01-15] MEDS: LISINOPRIL 10 MG TAB PO SCH ×2 (10:57→22:07)
[2018-01-15] MEDS: CLOPIDOGREL BISULFATE 75 MG TAB PO SCH (10:58)
[2018-01-15 11:57] VITALS: BP 157/72
[2018-01-15 13:17] LABS: Basophils # (auto) 0.2 uL; Hemoglobin 8.9 g/dL (13.5-17.5); Monocytes # (auto) 0.7 uL; Monocytes % (auto) 5.2 % (0.0-12.0); Nucleated Red Blood Cells % 0.1 %; Red Cell Distribution Width 16.5 % (11.8-14.3)
[2018-01-15 13:18] LABS: Basophils % (auto) 1.5 % (0.0-2.0); Eosinophils # (auto) 1.2 uL; Eosinophils % (auto) 8.5 % (0.0-7.0); Hematocrit 27.5 % (41.0-53.0); Lymphocytes # (auto) 1.6 uL; Lymphocytes % (auto) 12.1 % (10.0-50.0); Mean Corpuscular Hemoglobin 24.6 pg (28.0-32.0); Mean Corpuscular Hgb Conc. 32.2 g/dL (32.0-36.0); Mean Corpuscular Volume 76.2 fL (80.0-100.0); Neutrophils # (auto) 9.9 uL; Neutrophils % (auto) 72.7 % (37.0-80.0); Platelet Count (auto) 435 10^3/uL (140-450); Red Blood Cells 3.61 10^6/uL (4.5-5.90); White Blood Cell 13.6 10^3/uL (4.4-10.8)
[2018-01-15 13:36] LABS: Albumin 2.6 g/dL (3.4-5.0); BUN/Creatinine Ratio 18.9; Bilirubin, Total 0.2 mg/dL (0.2-1.0); Calcium 8.1 mg/dL (8.5-10.1); Potassium 5.3 mmol/L (3.5-5.1); Total Protein 6.8 g/dL (6.4-8.2)
[2018-01-15 16:40] VITALS: BP 112/67
[2018-01-15] MEDS: SODIUM CHLORIDE 0.9% 1,000 ML IV SCH (20:08)
[2018-01-15] MEDS: INSULIN LANTUS (GLARGINE) 1 /0.01ml (100units/ml) SC SCH (21:55)
[2018-01-15] MEDS: ATORVASTATIN 20 MG TAB PO SCH (21:55)
[2018-01-15] MEDS: cefTRIAXone 1GM/10ml IVPUSH 10 ML IV SCH (21:55)
[2018-01-15 22:00] VITALS: BP 140/68
[2018-01-16] MEDS: MORPHINE SULF INJ 2 MG/ML SYRINGE 1ML IV PRN ×6 (02:22→23:02)
[2018-01-16] MEDS: SODIUM CHLORIDE 0.9% 1,000 ML IV SCH ×4 (05:15→22:23)
[2018-01-16 05:30] VITALS: BP 137/63
[2018-01-16] MEDS: LEVOTHYROXINE SODIUM 100 MCG TAB PO SCH (06:21)
[2018-01-16] MEDS: CLINDAMYCIN 600MG IV 50 ML IV SCH ×3 (06:21→22:23)
[2018-01-16] MEDS: InsuLIN REG 1unit/0.01ml Soln (100units/ml) SC SCH ×4 (06:21→22:32)
[2018-01-16] MEDS: ACCU-CHEK COMFORT CURVE STRIP VI SCH ×5 (06:22→22:32)
[2018-01-16 07:41] LABS: Eosinophils # (auto) 1.1 uL; Hemoglobin 8.2 g/dL (13.5-17.5); Lymphocytes # (auto) 1.6 uL
[2018-01-16 07:44] LABS: Basophils # (auto) 0.1 uL; Basophils % (auto) 0.6 % (0.0-2.0); Eosinophils % (auto) 8.7 % (0.0-7.0); Hematocrit 25.7 % (41.0-53.0); Mean Corpuscular Hemoglobin 24.1 pg (28.0-32.0); Mean Corpuscular Hgb Conc. 31.8 g/dL (32.0-36.0); Mean Corpuscular Volume 75.8 fL (80.0-100.0); Monocytes # (auto) 0.6 uL; Monocytes % (auto) 4.8 % (0.0-12.0); Neutrophils # (auto) 9.1 uL; Neutrophils % (auto) 72.9 % (37.0-80.0); Platelet Count (auto) 416 10^3/uL (140-450); Red Cell Distribution Width 16.5 % (11.8-14.3); White Blood Cell 12.4 10^3/uL (4.4-10.8)
[2018-01-16 08:03] LABS: Albumin 2.4 g/dL (3.4-5.0); Calcium 8.4 mg/dL (8.5-10.1); Potassium 5.1 mmol/L (3.5-5.1)
[2018-01-16 08:04] VITALS: BP 120/53
[2018-01-16 08:09] LABS: BUN/Creatinine Ratio 21.2; Bilirubin, Total 0.3 mg/dL (0.2-1.0)
[2018-01-16] MEDS: ASPirin-EC 81 mg tab PO SCH (10:34)
[2018-01-16] MEDS: LISINOPRIL 10 MG TAB PO SCH ×2 (10:34→22:23)
[2018-01-16] MEDS: CLOPIDOGREL BISULFATE 75 MG TAB PO SCH (10:34)
[2018-01-16 12:30] VITALS: BP 159/74
[2018-01-16 16:32] VITALS: BP 137/74
[2018-01-16 22:00] VITALS: BP 129/67
[2018-01-16] MEDS: INSULIN LANTUS (GLARGINE) 1 /0.01ml (100units/ml) SC SCH (22:00)
[2018-01-16] MEDS: cefTRIAXone 1GM/10ml IVPUSH 10 ML IV SCH (22:23)
[2018-01-16] MEDS: ATORVASTATIN 20 MG TAB PO SCH (22:23)
[2018-01-17 05:00] VITALS: BP 150/74
[2018-01-17] MEDS: MORPHINE SULF INJ 2 MG/ML SYRINGE 1ML IV PRN ×4 (05:05→21:38)
[2018-01-17] MEDS: LEVOTHYROXINE SODIUM 100 MCG TAB PO SCH (06:01)
[2018-01-17] MEDS: InsuLIN REG 1unit/0.01ml Soln (100units/ml) SC SCH ×4 (06:01→21:40)
[2018-01-17] MEDS: CLINDAMYCIN 600MG IV 50 ML IV SCH ×3 (06:01→21:27)
[2018-01-17] MEDS: ACCU-CHEK COMFORT CURVE STRIP VI SCH ×4 (06:02→21:39)
[2018-01-17 08:00] VITALS: BP 131/58
[2018-01-17 08:59] LABS: Basophils # (auto) 0.1 uL
[2018-01-17 09:00] VITALS: BP 131/58
[2018-01-17 09:01] LABS: Basophils % (auto) 0.6 % (0.0-2.0); Eosinophils # (auto) 0.9 uL; Eosinophils % (auto) 7.3 % (0.0-7.0); Hematocrit 26.6 % (41.0-53.0); Hemoglobin 8.5 g/dL (13.5-17.5); Lymphocytes # (auto) 1.4 uL; Mean Corpuscular Hemoglobin 24.1 pg (28.0-32.0); Mean Corpuscular Hgb Conc. 31.8 g/dL (32.0-36.0); Mean Corpuscular Volume 75.7 fL (80.0-100.0); Monocytes # (auto) 0.7 uL; Monocytes % (auto) 5.4 % (0.0-12.0); Neutrophils % (auto) 74.7 % (37.0-80.0); Platelet Count (auto) 408 10^3/uL (140-450); Red Blood Cells 3.52 10^6/uL (4.5-5.90); Red Cell Distribution Width 16.5 % (11.8-14.3)
[2018-01-17 09:18] LABS: Albumin 2.6 g/dL (3.4-5.0); Bilirubin, Total 0.2 mg/dL (0.2-1.0); Calcium 8.1 mg/dL (8.5-10.1); Total Protein 6.7 g/dL (6.4-8.2)
[2018-01-17 09:20] LABS: INR 1.01 (0.9-1.15); Partial Thromboplastin Time 30.9 sec (23.78-33.04); Prothrombin Time 10.8 sec (9.27-12.13)
[2018-01-17] MEDS: LISINOPRIL 10 MG TAB PO SCH ×2 (10:00→21:49)
[2018-01-17] MEDS: CLOPIDOGREL BISULFATE 75 MG TAB PO SCH (10:00)
[2018-01-17] MEDS: ASPirin-EC 81 mg tab PO SCH (10:00)
[2018-01-17] MEDS: SODIUM CHLORIDE 0.9% 1,000 ML IV SCH (11:30)
[2018-01-17 13:00] VITALS: BP 138/68
[2018-01-17] MEDS ORDERED: LIDOCAINE 2% (LOCAL ANESTH.) PF 5ml SDV ONE ×2 (13:03→13:55)
[2018-01-17] MEDS ORDERED: IODIXANOL 320MG/ML 100ML BTL IV ONE ×2 (13:03→14:18)
[2018-01-17] MEDS ORDERED: ANGIOMAX 250 MG VIAL IV ONE (13:33)
[2018-01-17] MEDS ORDERED: SODIUM CHL 0.9% 50 ML ONE (13:34)
[2018-01-17] MEDS ORDERED: fentaNYL CITRATE 100 MCG/2 ML VL ONE (13:34)
[2018-01-17] MEDS ORDERED: MIDAZOLAM HCL 1MG/1ML-2 ML VIAL ONE (13:34)
[2018-01-17] MEDS ORDERED: diphenhdrAMINE HCL 50 MG/1 ML VL ONE (14:12)
[2018-01-17] MEDS ORDERED: ASPirin 81 mg TAB ONE (14:26)
[2018-01-17] MEDS ORDERED: CLOPIDOGREL BISULFATE 75 MG TAB ONE (14:26)
[2018-01-17] MEDS: HYDROcodone-ACET 5/325MG TAB PO PRN ×2 (14:59→21:20)
[2018-01-17] MEDS ORDERED: LIDOCAINE 1% (LOCAL ANESTH.) PF 5ml SDV ID ONE (16:30)
[2018-01-17 17:00] VITALS: BP 152/70
[2018-01-17] MEDS ORDERED: LABETALOL HCL 5 MG/ML ML 20ML VIAL IV PRN (17:15)
[2018-01-17] MEDS: cefTRIAXone 1GM/10ml IVPUSH 10 ML IV SCH (21:25)
[2018-01-17] MEDS: ATORVASTATIN 20 MG TAB PO SCH (21:25)
[2018-01-17] MEDS: INSULIN LANTUS (GLARGINE) 1 /0.01ml (100units/ml) SC SCH (21:39)
[2018-01-17] MEDS: SODIUM CHLOR 0.9% PF (SALINE LOCK) 10ML VIAL/SYR IV SCH (21:50)
[2018-01-17 22:00] VITALS: BP 139/67
[2018-01-18] MEDS: SODIUM CHLORIDE 0.9% 1,000 ML IV SCH ×3 (00:30→17:30)
[2018-01-18] MEDS: MORPHINE SULF INJ 2 MG/ML SYRINGE 1ML IV PRN ×6 (02:01→22:39)
[2018-01-18 05:00] VITALS: BP 128/70
[2018-01-18] MEDS: LEVOTHYROXINE SODIUM 100 MCG TAB PO SCH (06:15)
[2018-01-18] MEDS: CLINDAMYCIN 600MG IV 50 ML IV SCH ×3 (06:15→22:13)
[2018-01-18] MEDS: InsuLIN REG 1unit/0.01ml Soln (100units/ml) SC SCH ×4 (06:40→22:39)
[2018-01-18] MEDS: ACCU-CHEK COMFORT CURVE STRIP VI SCH ×4 (06:40→22:39)
[2018-01-18 07:20] LABS: Basophils # (auto) 0.1 uL; Hemoglobin 8.5 g/dL (13.5-17.5); White Blood Cell 14.7 10^3/uL (4.4-10.8)
[2018-01-18 07:23] LABS: Basophils % (auto) 0.5 % (0.0-2.0); Eosinophils # (auto) 1.4 uL; Eosinophils % (auto) 9.3 % (0.0-7.0); Hematocrit 26.6 % (41.0-53.0); Lymphocytes % (auto) 13.5 % (10.0-50.0); Mean Corpuscular Hemoglobin 24.3 pg (28.0-32.0); Mean Corpuscular Hgb Conc. 31.9 g/dL (32.0-36.0); Mean Corpuscular Volume 76.2 fL (80.0-100.0); Monocytes # (auto) 0.8 uL; Monocytes % (auto) 5.3 % (0.0-12.0); Neutrophils # (auto) 10.5 uL; Neutrophils % (auto) 71.4 % (37.0-80.0); Platelet Count (auto) 428 10^3/uL (140-450); Red Blood Cells 3.49 10^6/uL (4.5-5.90); Red Cell Distribution Width 16.7 % (11.8-14.3)
[2018-01-18 07:33] LABS: Albumin 2.6 g/dL (3.4-5.0); BUN/Creatinine Ratio 26.3; Calcium 8.1 mg/dL (8.5-10.1); Potassium 4.7 mmol/L (3.5-5.1)
[2018-01-18 07:35] LABS: Bilirubin, Total 0.4 mg/dL (0.2-1.0); Total Protein 6.5 g/dL (6.4-8.2)
[2018-01-18 09:00] VITALS: BP 129/60
[2018-01-18] MEDS: CLOPIDOGREL BISULFATE 75 MG TAB PO SCH (10:14)
[2018-01-18] MEDS: LISINOPRIL 10 MG TAB PO SCH ×2 (10:14→22:14)
[2018-01-18] MEDS: SODIUM CHLOR 0.9% PF (SALINE LOCK) 10ML VIAL/SYR IV SCH ×3 (10:14→22:13)
[2018-01-18] MEDS: ASPirin-EC 81 mg tab PO SCH (10:14)
[2018-01-18] MEDS ORDERED: LIDOCAINE 1% (LOCAL ANESTH.) PF 5ml SDV ID ONE (10:45)
[2018-01-18 13:26] VITALS: BP 147/68
[2018-01-18] MEDS ORDERED: POTASSIUM CHL 20 Meq TABLET PO ONE (16:45)
[2018-01-18] MEDS ORDERED: FUROSEMIDE 100 MG/10ML VIAL IV ONE (16:45)
[2018-01-18 17:12] VITALS: BP 146/56
[2018-01-18] MEDS: cefTRIAXone 1GM/10ml IVPUSH 10 ML IV SCH (17:52)
[2018-01-18 21:45] VITALS: BP 142/63
[2018-01-18] MEDS: ATORVASTATIN 20 MG TAB PO SCH (22:13)
[2018-01-18] MEDS: INSULIN LANTUS (GLARGINE) 1 /0.01ml (100units/ml) SC SCH (22:39)
[2018-01-19] MEDS: SODIUM CHLORIDE 0.9% 1,000 ML IV SCH (02:10)
[2018-01-19] MEDS: MORPHINE SULF INJ 2 MG/ML SYRINGE 1ML IV PRN ×3 (02:32→10:55)
[2018-01-19 04:37] VITALS: BP 112/58
[2018-01-19] MEDS: InsuLIN REG 1unit/0.01ml Soln (100units/ml) SC SCH ×2 (06:01→11:30)
[2018-01-19] MEDS: LEVOTHYROXINE SODIUM 100 MCG TAB PO SCH (06:01)
[2018-01-19] MEDS: CLINDAMYCIN 600MG IV 50 ML IV SCH (06:01)
[2018-01-19] MEDS: ACCU-CHEK COMFORT CURVE STRIP VI SCH ×2 (06:01→12:16)
[2018-01-19 08:00] VITALS: BP 139/69
[2018-01-19] MEDS: ASPirin-EC 81 mg tab PO SCH (09:41)
[2018-01-19] MEDS: CLOPIDOGREL BISULFATE 75 MG TAB PO SCH (09:41)
[2018-01-19] MEDS: cefTRIAXone 1GM/10ml IVPUSH 10 ML IV SCH (09:41)
[2018-01-19] MEDS: SODIUM CHLOR 0.9% PF (SALINE LOCK) 10ML VIAL/SYR IV SCH ×2 (09:41→09:45)
[2018-01-19] MEDS: LISINOPRIL 10 MG TAB PO SCH (09:41)
== END 2018-01-19 13:15 | disposition home health service (06) | DRG 853 ==
LOC: ER 13:57 → EDBD 13:57 → TELE 13:58 → TELE-WESTW 23:15
PROVIDERS: ADMIT Nurse Practitioner Family; ATTEND Family Medicine
PROC: 047D3Z1 Dilation of Left Common Iliac Artery using Drug-Coated Balloon, Percutaneous Approach (ICD-10-PCS; principal; 2018-01-17)
PROC: 047L3Z1 Dilation of Left Femoral Artery using Drug-Coated Balloon, Percutaneous Approach (ICD-10-PCS; 2018-01-17)
PROC: 047K3Z1 Dilation of Right Femoral Artery using Drug-Coated Balloon, Percutaneous Approach (ICD-10-PCS; 2018-01-17)
PROC: 047C3Z1 Dilation of Right Common Iliac Artery using Drug-Coated Balloon, Percutaneous Approach (ICD-10-PCS; 2018-01-17)
PROC: 04CD3ZZ Extirpation of Matter from Left Common Iliac Artery, Percutaneous Approach (ICD-10-PCS; 2018-01-17)
PROC: 04CC3ZZ Extirpation of Matter from Right Common Iliac Artery, Percutaneous Approach (ICD-10-PCS; 2018-01-17)
PROC: 04CL3ZZ Extirpation of Matter from Left Femoral Artery, Percutaneous Approach (ICD-10-PCS; 2018-01-17)
PROC: 04CK3ZZ Extirpation of Matter from Right Femoral Artery, Percutaneous Approach (ICD-10-PCS; 2018-01-17)
PROC: B41G1ZZ Fluoroscopy of Left Lower Extremity Arteries using Low Osmolar Contrast (ICD-10-PCS; 2018-01-17)
PROC: B41F1ZZ Fluoroscopy of Right Lower Extremity Arteries using Low Osmolar Contrast (ICD-10-PCS; 2018-01-17)
PROC: 02HV33Z Insertion of Infusion Device into Superior Vena Cava, Percutaneous Approach (ICD-10-PCS; 2018-01-17)
PROC: 3E033PZ Introduction of Platelet Inhibitor into Peripheral Vein, Percutaneous Approach (ICD-10-PCS; 2018-01-17)
DX: A41.9 Sepsis, unspecified organism (principal); E11.10 Type 2 diabetes mellitus with ketoacidosis without coma; N17.0 Acute kidney failure with tubular necrosis; L03.115 Cellulitis of right lower limb; E87.1 Hypo-osmolality and hyponatremia; L03.116 Cellulitis of left lower limb; E44.0 Moderate protein-calorie malnutrition; M86.8X7 Other osteomyelitis, ankle and foot; D50.8 Other iron deficiency anemias; E03.9 Hypothyroidism, unspecified; E11.21 Type 2 diabetes mellitus with diabetic nephropathy; E11.22 Type 2 diabetes mellitus with diabetic chronic kidney disease; E11.51 Type 2 diabetes mellitus with diabetic peripheral angiopathy without gangrene; E11.621 Type 2 diabetes mellitus with foot ulcer; E11.69 Type 2 diabetes mellitus with other specified complication; E78.00 Pure hypercholesterolemia, unspecified; E87.5 Hyperkalemia; F32.9 Major depressive disorder, single episode, unspecified; M54.9 Dorsalgia, unspecified; F41.9 Anxiety disorder, unspecified; G89.29 Other chronic pain; I12.9 Hypertensive chronic kidney disease with stage 1 through stage 4 chronic kidney disease, or unspecified chronic kidney disease; I70.202 Unspecified atherosclerosis of native arteries of extremities, left leg; K59.00 Constipation, unspecified; L97.519 Non-pressure chronic ulcer of other part of right foot with unspecified severity; L97.529 Non-pressure chronic ulcer of other part of left foot with unspecified severity; N18.3 Chronic kidney disease, stage 3 (moderate); Z79.02 Long term (current) use of antithrombotics/antiplatelets; Z79.4 Long term (current) use of insulin; Z79.82 Long term (current) use of aspirin; Z82.49 Family history of ischemic heart disease and other diseases of the circulatory system; Z83.3 Family history of diabetes mellitus; Z98.61 Coronary angioplasty status; Z79.899 Other long term (current) drug therapy; Z87.891 Personal history of nicotine dependence; Z68.28 Body mass index [BMI] 28.0-28.9, adult
CPT/HCPCS: 34201; 36415; 36569; 37224; 71045; 71046; 73630; 73718; 75716; 80048; 80053; 81001; 82962; 83036; 83605; 83735; 83880; 84443; 85025; 85610; 85730; 87040; 87081; 90471; 90715; 93005; 93926; 93970; 94761; 96374; 96375; 99152; A6257; C1876; J0696; J1815; J2001; J2250; J2405; J3490; Q9967

== ENCOUNTER → 2018-02-06 | Outpatient (CLI) | payer BC ==
[~2018-02-06] MED LIST changes: +INSLISPI SC
== END | disposition home or self-care (01) ==
LOC: Rad HDHVI 14:07
PROVIDERS: ATTEND Internal Medicine Cardiovascular Disease
DX: I70.291 Other atherosclerosis of native arteries of extremities, right leg (principal); E13.622 Other specified diabetes mellitus with other skin ulcer
CPT/HCPCS: 93926

== ENCOUNTER → 2018-03-26 | Outpatient (CLI) | payer BC | END | disposition home or self-care (01) | LOC: Rad HDHVI 14:10 | PROVIDERS: ATTEND Internal Medicine Cardiovascular Disease | DX: I65.23 Occlusion and stenosis of bilateral carotid arteries (principal); I25.2 Old myocardial infarction | CPT/HCPCS: 93880 ==

== ENCOUNTER 2018-09-27 11:02 | Inpatient (IN) | payer MEDICAID | END 2018-09-28 18:45 | disposition home or self-care (01) | LOC: ER 11:02 → TELE 14:46 → TELE-CENTR 16:09 | DX: R53.1 Weakness (principal); E11.65 Type 2 diabetes mellitus with hyperglycemia; D64.9 Anemia, unspecified; I10 Essential (primary) hypertension ==